=== PATIENT | male | born 1975 | race Caucasian/White ===

== ENCOUNTER 2019-08-04 16:53 | Emergency (ER) | payer OTHER, MEDICAID, SELFPAY ==
[2019-08-04 16:53] VITALS: BP 170/112; PULSE 110; RESP 18; TEMP 37.2; O2SAT 96
--- NOTE | 2019-08-04 17:00 | ED_ITS ---
HPI - Psych <SONIYA Juarez - Last Filed: 08/04/19 21:19> General Chief Complaint: Psychiatric Symptoms Stated Complaint: Mental Health Time Seen by Provider: 08/04/19 16:54 History of Present Illness HPI Narrative: 43yo male presents emergency department via police for homicidal ideation. Please report that they were called to his house yesterday for vague homicidal thoughts. They were called again today to patient's house as he was continued to make, saddle throat. Patient was brought into the emergency department intermittently aggressive toward staff with healing and pacing. Patient would not denies homicidal ideation to triage nurse. Patient was originally non cooperative with staff but then cooperated for blood draw, examination, and encouraged to stay the room. Denies any fever, cough, pain, or injury. When asked if he wanted to harm people he reported ?I will if I have to protect myself. Patient was asked was he feels like he needs to protect himself from, patient reports, I just do sometimes and him not repeating again. Please incident reports note reported that patient's brother, Elvin Montalvo called 911 and reported that the patient left a voicemail and/or text threatening to kill his mother. Please went to check and patient's mother who reported patient had been talking about killing people all day long. Patient's mother spoke with Roldan Braden from [facility] and were instucted to bring the patient into the hospital for evaluation. Patient's mother reported yesterday patient made threats about killing her, other people, and that eventually himself. Patient's mother endorsed patient was diagnosed with depression. Please reported that patient was concerned that someone was following him due to witness rubbing in [place]. Related Data Home Medications Medication Instructions Recorded Confirmed No Known Home Medications 08/04/19 08/04/19 Allergies Allergy/AdvReac Type Severity Reaction Status Date / Time No Known Drug Allergies Allergy Verified 08/04/19 17:21 Review of Systems <SONIYA Juarez - Last Filed: 08/04/19 21:19> Review of Systems Narrative: REVIEW OF SYSTEMS: GENERAL: Denies fever or chills. HENT: No head trauma. RESPIRATORY: No cough. MUSCULOSKELETAL: No injury. INTEGUMENTARY: No injury. NEURO: No LOC. PSYCH: Patient was brought in by police for HI and SI. When asked if he wanted to harm people he reported ?I will if I have to protect myself. Patient History <SONIYA Juarez - Last Filed: 08/04/19 21:19> Medical History Alcohol intoxication (Acute) Deliberate self-cutting (Acute) Depression (Acute) Social History Smoking Status: Current every day smoker Exam <SONIYA Juarez - Last Filed: 08/04/19 21:19> Initial Vital Signs Initial Vital Signs: Vital Signs Temperature 98.9 F 08/04/19 16:53 Pulse Rate 110 H 08/04/19 16:53 Respiratory Rate 18 08/04/19 16:53 Blood Pressure 170/112 H 08/04/19 16:53 Pulse Oximetry 96 08/04/19 16:53 PHYSICAL EXAMINATION: GENERAL: Disheveled, poor hygiene. Poor historian, occasionally aggressive, can be redirected. HENT: Normocephalic, atraumatic. EYES: Conjunctiva pink, sclera white, no periorbital swelling. CHEST: Normal to inspection and without deformities. CARDIOVASCULAR: S1 and S2 sounds normal. Regular rate and rhythm, no murmurs, clicks, or bruits. RESPIRATORY: Normal respiratory rate, trachea midline, airway patent. No stridor, nasal flaring or accessory muscle use. Lungs are clear in all august without wheeze, rhonchi, or crackles. MUSCULOSKELETAL: Normal gait and coordination. Equal tone and mass bilaterally. No injuries. EXTREMITIES: Moves all extremities. SKIN: Warm, dry, soft, appropriate color for ethnicity. NEURO: Alert and Oriented X 3. Good coordination. No ataxia. PSYCH: Agitated. Admits homicidal ideations, denies suicidal ideation at this time. Allowed, pressured, and rambling speech. Redirectable by Police, threatening to leave but does cooperate for blood draws and examination. <Michael Bob DO - Last Filed: 08/05/19 01:56> Initial Vital Signs Initial Vital Signs: Vital Signs Temperature 98.9 F 08/04/19 16:53 Pulse Rate 110 H 08/04/19 16:53 Respiratory Rate 18 08/04/19 16:53 Blood Pressure 170/112 H 08/04/19 16:53 Pulse Oximetry 96 08/04/19 16:53 Scores <Melani SONIYA Crow - Last Filed: 08/04/19 21:19> GCS [place] coma scale eye opening: Spontaneous [place] coma scale verbal response: Orientated Carly coma scale motor response: Obey commands Carly coma scale total score: 15 Course <Melani HerreraSONIYA cortez - Last Filed: 08/04/19 21:19> Course Course Narrative: Patient was initially significantly agitated with staff despite efforts to redirect. Chemical restraints were ordered however, patient started to cooperate. No medication was administered, no restrained for used, discontinue observation by police and staff during ED stay. 1840: Patient was evaluated by SAP TREASURY CONSULTANT. 2029: Patient resting comfortably in bed, calm and cooperative, occasionally chatting with staff. Patient seen laughing with staff, drinking coffee, redirectable not agitated at this time. 2103: Spoke with SAP TREASURY CONSULTANT contacted DCR, DCR dispatched and on the way. 2115: Patient escalating, patient yelling at staff and stating that he wants to leave to smoke a cigarette. Refuses nicotine patch. Report given to Dr. Bob, Dr. Bob evaluated patient at bedside. Orders Ordered: ED Orders 08/04/19 17:03 Complete Blood Count AUTO DIFF Stat Comprehensive Metabolic Panel Stat Ethanol (ETOH) Stat Thyroid Stimulating Hormone Stat 08/04/19 17:07 Urinalysis and Microscopic Stat Urine Drug Screen, Rapid Stat Discontinued Medications Diphenhydramine HCl (Benadryl) 25 mg PO NOW ONE Stop: 08/04/19 16:58 Last Admin: 08/04/19 17:10 Dose: Not Given Documented by: ADRIANA Diphenhydramine HCl (Benadryl) 25 mg IV NOW ONE Stop: 08/04/19 17:08 Last Admin: 08/04/19 20:31 Dose: Not Given Documented by: ADÁN Haloperidol (Haldol) 5 mg IM NOW ONE Stop: 08/04/19 16:58 Last Admin: 08/04/19 20:31 Dose: Not Given Documented by: ADÁN Lorazepam (Ativan) 2 mg IM NOW ONE Stop: 08/04/19 16:58 Last Admin: 08/04/19 20:31 Dose: Not Given Documented by: ADÁN Lorazepam (Ativan) 2 mg PO NOW ONE Stop: 08/04/19 21:15 Last Admin: 08/04/19 21:19 Dose: 2 mg Documented by: ADÁN Vital Signs Vital signs: Vital Signs - 8 hr 08/04/19 16:53 Temperature 98.9 F Pulse Rate 110 H Respiratory Rate 18 Blood Pressure [Left Arm] 170/112 H Pulse Oximetry 96 <Michael Bob DO - Last Filed: 08/05/19 01:56> Orders Ordered: ED Orders 08/04/19 17:03 Complete Blood Count AUTO DIFF Stat Comprehensive Metabolic Panel Stat Ethanol (ETOH) Stat Thyroid Stimulating Hormone Stat 08/04/19 17:07 Urinalysis and Microscopic Stat Urine Drug Screen, Rapid Stat Discontinued Medications Diphenhydramine HCl (Benadryl) 25 mg PO NOW ONE Stop: 08/04/19 16:58 Last Admin: 08/04/19 17:10 Dose: Not Given Documented by: ADRIANA Diphenhydramine HCl (Benadryl) 25 mg IV NOW ONE Stop: 08/04/19 17:08 Last Admin: 08/04/19 20:31 Dose: Not Given Documented by: ADÁN Haloperidol (Haldol) 5 mg IM NOW ONE Stop: 08/04/19 16:58 Last Admin: 08/04/19 20:31 Dose: Not Given Documented by: ADÁN Lorazepam (Ativan) 2 mg IM NOW ONE Stop: 08/04/19 16:58 Last Admin: 08/04/19 20:31 Dose: Not Given Documented by: ADÁN Lorazepam (Ativan) 2 mg PO NOW ONE Stop: 08/04/19 21:15 Last Admin: 08/04/19 21:19 Dose: 2 mg Documented by: AÁDN Vital Signs Vital signs: Vital Signs - 8 hr 08/04/19 16:53 Temperature 98.9 F Pulse Rate 110 H Respiratory Rate 18 Blood Pressure [Left Arm] 170/112 H Pulse Oximetry 96 MDM - Psych <SONIYA Juarez - Last Filed: 08/04/19 21:19> Medical Records Attestation: I reviewed the patient's medical records. Lab Data Attestation: I reviewed the patient's lab results. Result diagrams: 08/04/19 17:03 08/04/19 17:03 Labs: Lab Results 08/04/19 08/04/19 08/04/19 Range/Units 17:03 17:03 17:03 WBC 6.9 (4.5-11.0) X10^3/uL RBC 4.74 (4.5-5.9) X10^6/uL Hgb 15.4 (13.5-17.5) g/dL Hct 44.3 (41-53) % MCV 93.5 (80-100) fL MCH 32.4 (26-34) PG MCHC 34.7 (30-36) % RDW 13.8 (11.6-14.8) % Plt Count 361 (150-400) X10^3/uL Neut % (Auto) 48.1 L (50-75) % Lymph % (Auto) 40.4 H (25-40) % [place] % (Auto) 9.3 (3-14) % Eos % (Auto) 1.4 L (2-4) % Baso % (Auto) 0.8 (0-2) % Neut # (Auto) 3300 (3048-0484) /uL Lymph # (Auto) 2800 (7895-7350) /uL [place] # (Auto) 600 (0-900) /uL Eos # (Auto) 100 (0-450) /uL Baso # (Auto) 100 (0-100) /uL Sodium 141 (137-145) mmol/L Potassium 3.8 (3.4-5.1) mmol/L Chloride 105 (98-107) mmol/L Carbon Dioxide 21 L (22-32) mmol/L BUN 10 (9-20) mg/dL Creatinine 0.83 (0.66-1.25) mg/dL Estimated GFR > 60.0 (>60) mL/min BUN/Creatinine Ratio 12.0 (6-22) Glucose 173 H (70-100) mg/dL Calcium 9.0 (8.4-10.2) mg/dL Total Bilirubin 0.2 (0.2-1.3) mg/dL AST 25 (17-59) IU/L ALT 19 (<50) IU/L Alkaline Phosphatase 94 (38-126) U/L Total Protein 8.2 (6.3-8.2) g/dL Albumin 4.8 (3.5-5.0) g/dL Globulin 3.4 (1.7-4.1) g/dL Albumin/Globulin Ratio 1.4 (1.0-2.8) TSH 0.54 (0.47-4.68) uIU/mL Urine Color Urine Appearance Urine pH (4.5-8.0) Ur Specific [place] (1.000-1.035) Urine Protein (Negative) Urine Glucose (UA) (Negative) g/dL Urine Ketones (NEGATIVE) Urine Occult Blood (Negative) Urine Nitrate (Negative) Urine Bilirubin (NEGATIVE) Urine Urobilinogen (0.2) E.U./dL Ur Leukocyte Esterase (NEGATIVE) Urine RBC (0-5/HPF) Urine WBC (0-5/HPF) Urine Bacteria (None) Ur Culture Indicated? Micro UA Comment U Opiates 300ng/mL cut (Negative) Ur Oxycodone Screen (Negative) Urine Methadone Screen (Negative) Ur Barbiturates Screen (Negative) U Tricyclic Antidepress (Negative) Ur Phencyclidine Scrn (Negative) Ur Amphetamines Screen (Negative) U Methamphetamines Scrn (Negative) Ur MDMA Scrn (Ecstasy) (Negative) U Benzodiazepines Scrn (Negative) Urine Cocaine Screen (Negative) U Marijuana (THC) Screen (Negative) Ethyl Alcohol 229 H ( - 10) mg/dL 08/04/19 08/04/19 Range/Units 17:07 17:07 WBC (4.5-11.0) X10^3/uL RBC (4.5-5.9) X10^6/uL Hgb (13.5-17.5) g/dL Hct (41-53) % MCV (80-100) fL MCH (26-34) PG MCHC (30-36) % RDW (11.6-14.8) % Plt Count (150-400) X10^3/uL Neut % (Auto) (50-75) % Lymph % (Auto) (25-40) % [place] % (Auto) (3-14) % Eos % (Auto) (2-4) % Baso % (Auto) (0-2) % Neut # (Auto) (7807-4420) /uL Lymph # (Auto) (8193-1417) /uL [place] # (Auto) (0-900) /uL Eos # (Auto) (0-450) /uL Baso # (Auto) (0-100) /uL Sodium (137-145) mmol/L Potassium (3.4-5.1) mmol/L Chloride (98-107) mmol/L Carbon Dioxide (22-32) mmol/L BUN (9-20) mg/dL Creatinine (0.66-1.25) mg/dL Estimated GFR (>60) mL/min BUN/Creatinine Ratio (6-22) Glucose (70-100) mg/dL Calcium (8.4-10.2) mg/dL Total Bilirubin (0.2-1.3) mg/dL AST (17-59) IU/L ALT (<50) IU/L Alkaline Phosphatase (38-126) U/L Total Protein (6.3-8.2) g/dL Albumin (3.5-5.0) g/dL Globulin (1.7-4.1) g/dL Albumin/Globulin Ratio (1.0-2.8) TSH (0.47-4.68) uIU/mL Urine Color Yellow Urine Appearance Clear Urine pH 5.0 (4.5-8.0) Ur Specific [place] 1.025 (1.000-1.035) Urine Protein Negative (Negative) Urine Glucose (UA) Negative (Negative) g/dL Urine Ketones Negative (NEGATIVE) Urine Occult Blood Negative (Negative) Urine Nitrate Negative (Negative) Urine Bilirubin Negative (NEGATIVE) Urine Urobilinogen 0.2 (0.2) E.U./dL Ur Leukocyte Esterase Negative (NEGATIVE) Urine RBC None seen (0-5/HPF) Urine WBC None seen (0-5/HPF) Urine Bacteria None seen (None) Ur Culture Indicated? Cult not indicated Micro UA Comment Microscopic normal U Opiates 300ng/mL cut Negative (Negative) Ur Oxycodone Screen Negative (Negative) Urine Methadone Screen Negative (Negative) Ur Barbiturates Screen Negative (Negative) U Tricyclic Antidepress Negative (Negative) Ur Phencyclidine Scrn Negative (Negative) Ur Amphetamines Screen Negative (Negative) U Methamphetamines Scrn Negative (Negative) Ur MDMA Scrn (Ecstasy) Negative (Negative) U Benzodiazepines Scrn Negative (Negative) Urine Cocaine Screen Negative (Negative) U Marijuana (THC) Screen Negative (Negative) Ethyl Alcohol ( - 10) mg/dL MDM Narrative Medical decision making narrative: 43-year-old male with a history of depression and homicidal ideation was brought to the emergency department by police for homicidal ideation. Patient admits homicidal ideation, currently denies SI. Patient was initially aggressive with staff, then was redirected and calm for few hours. In the emergency department, around 9:00 p.m. patient became aggravated and aggressive with staff. DCFR called due to patient's homicidal ideation, patient is a threat to others. Patient was signed out to Dr. Maradiaga at 2112. <Michael Bob, DO - Last Filed: 08/05/19 01:56> Lab Data Labs: Lab Results 08/04/19 08/04/19 08/04/19 Range/Units 17:03 17:03 17:03 WBC 6.9 (4.5-11.0) X10^3/uL RBC 4.74 (4.5-5.9) X10^6/uL Hgb 15.4 (13.5-17.5) g/dL Hct 44.3 (41-53) % MCV 93.5 (80-100) fL MCH 32.4 (26-34) PG MCHC 34.7 (30-36) % RDW 13.8 (11.6-14.8) % Plt Count 361 (150-400) X10^3/uL Neut % (Auto) 48.1 L (50-75) % Lymph % (Auto) 40.4 H (25-40) % [place] % (Auto) 9.3 (3-14) % Eos % (Auto) 1.4 L (2-4) % Baso % (Auto) 0.8 (0-2) % Neut # (Auto) 3300 (3492-0531) /uL Lymph # (Auto) 2800 (1149-2962) /uL [place] # (Auto) 600 (0-900) /uL Eos # (Auto) 100 (0-450) /uL Baso # (Auto) 100 (0-100) /uL Sodium 141 (137-145) mmol/L Potassium 3.8 (3.4-5.1) mmol/L Chloride 105 (98-107) mmol/L Carbon Dioxide 21 L (22-32) mmol/L BUN 10 (9-20) mg/dL Creatinine 0.83 (0.66-1.25) mg/dL Estimated GFR > 60.0 (>60) mL/min BUN/Creatinine Ratio 12.0 (6-22) Glucose 173 H (70-100) mg/dL Calcium 9.0 (8.4-10.2) mg/dL Total Bilirubin 0.2 (0.2-1.3) mg/dL AST 25 (17-59) IU/L ALT 19 (<50) IU/L Alkaline Phosphatase 94 (38-126) U/L Total Protein 8.2 (6.3-8.2) g/dL Albumin 4.8 (3.5-5.0) g/dL Globulin 3.4 (1.7-4.1) g/dL Albumin/Globulin Ratio 1.4 (1.0-2.8) TSH 0.54 (0.47-4.68) uIU/mL Urine Color Urine Appearance Urine pH (4.5-8.0) Ur Specific [place] (1.000-1.035) Urine Protein (Negative) Urine Glucose (UA) (Negative) g/dL Urine Ketones (NEGATIVE) Urine Occult Blood (Negative) Urine Nitrate (Negative) Urine Bilirubin (NEGATIVE) Urine Urobilinogen (0.2) E.U./dL Ur Leukocyte Esterase (NEGATIVE) Urine RBC (0-5/HPF) Urine WBC (0-5/HPF) Urine Bacteria (None) Ur Culture Indicated? Micro UA Comment U Opiates 300ng/mL cut (Negative) Ur Oxycodone Screen (Negative) Urine Methadone Screen (Negative) Ur Barbiturates Screen (Negative) U Tricyclic Antidepress (Negative) Ur Phencyclidine Scrn (Negative) Ur Amphetamines Screen (Negative) U Methamphetamines Scrn (Negative) Ur MDMA Scrn (Ecstasy) (Negative) U Benzodiazepines Scrn (Negative) Urine Cocaine Screen (Negative) U Marijuana (THC) Screen (Negative) Ethyl Alcohol 229 H ( - 10) mg/dL 08/04/19 08/04/19 Range/Units 17:07 17:07 WBC (4.5-11.0) X10^3/uL RBC (4.5-5.9) X10^6/uL Hgb (13.5-17.5) g/dL Hct (41-53) % MCV (80-100) fL MCH (26-34) PG MCHC (30-36) % RDW (11.6-14.8) % Plt Count (150-400) X10^3/uL Neut % (Auto) (50-75) % Lymph % (Auto) (25-40) % [place] % (Auto) (3-14) % Eos % (Auto) (2-4) % Baso % (Auto) (0-2) % Neut # (Auto) (5224-6765) /uL Lymph # (Auto) (4063-8087) /uL [place] # (Auto) (0-900) /uL Eos # (Auto) (0-450) /uL Baso # (Auto) (0-100) /uL Sodium (137-145) mmol/L Potassium (3.4-5.1) mmol/L Chloride (98-107) mmol/L Carbon Dioxide (22-32) mmol/L BUN (9-20) mg/dL Creatinine (0.66-1.25) mg/dL Estimated GFR (>60) mL/min BUN/Creatinine Ratio (6-22) Glucose (70-100) mg/dL Calcium (8.4-10.2) mg/dL Total Bilirubin (0.2-1.3) mg/dL AST (17-59) IU/L ALT (<50) IU/L Alkaline Phosphatase (38-126) U/L Total Protein (6.3-8.2) g/dL Albumin (3.5-5.0) g/dL Globulin (1.7-4.1) g/dL Albumin/Globulin Ratio (1.0-2.8) TSH (0.47-4.68) uIU/mL Urine Color Yellow Urine Appearance Clear Urine pH 5.0 (4.5-8.0) Ur Specific [place] 1.025 (1.000-1.035) Urine Protein Negative (Negative) Urine Glucose (UA) Negative (Negative) g/dL Urine Ketones Negative (NEGATIVE) Urine Occult Blood Negative (Negative) Urine Nitrate Negative (Negative) Urine Bilirubin Negative (NEGATIVE) Urine Urobilinogen 0.2 (0.2) E.U./dL Ur Leukocyte Esterase Negative (NEGATIVE) Urine RBC None seen (0-5/HPF) Urine WBC None seen (0-5/HPF) Urine Bacteria None seen (None) Ur Culture Indicated? Cult not indicated Micro UA Comment Microscopic normal U Opiates 300ng/mL cut Negative (Negative) Ur Oxycodone Screen Negative (Negative) Urine Methadone Screen Negative (Negative) Ur Barbiturates Screen Negative (Negative) U Tricyclic Antidepress Negative (Negative) Ur Phencyclidine Scrn Negative (Negative) Ur Amphetamines Screen Negative (Negative) U Methamphetamines Scrn Negative (Negative) Ur MDMA Scrn (Ecstasy) Negative (Negative) U Benzodiazepines Scrn Negative (Negative) Urine Cocaine Screen Negative (Negative) U Marijuana (THC) Screen Negative (Negative) Ethyl Alcohol ( - 10) mg/dL Discharge Plan Departure Prescriptions: No Action No Known Home Medications RF: 0 <Michael Bob DO - Last Filed: 08/05/19 01:56> Cosign ED Attending Cosignature Attestation: I was immediately available in the department for consultation. This documentation has been reviewed and I agree with assessment and plan. Supervised by Michael Bob DO
--- NOTE | 2019-08-04 17:06 | PC.NURSE ---
During triage patient was evalsive with answers. Me: Are you suicidal? Pt; What every they say (looking at Police) Me: Do you want to harm anyone else? Pt: if they get in the way Pt then challenged my authority to be in the room and demonstrated increased posturing and muscle tone w/ verbalized agitation. I asked if he would be willing to give a blood /urine sample he stated your going to have to make me and balled his fists. At that time I requested that the [place] officers stay and escort pt to safe room. Pt changed to safe garments. He continued to verbalize his discontent.
[2019-08-04 17:13] LABS: Add Manual Diff / Slide Review NO; Basophils Absolute Auto 100 /uL (0-100); Basophils Percent Auto 0.8 % (0-2); Eosinophils Absolute Auto 100 /uL (0-450); Eosinophils Percent Auto 1.4 % (2-4); Hematocrit 44.3 % (41-53); Hemoglobin 15.4 g/dL (13.5-17.5); Lymphocytes Absolute Auto 2800 /uL (1100-4500); Lymphocytes Percent Auto 40.4 % (25-40); Mean Corpuscular HGB Conc 34.7 % (30-36); Mean Corpuscular Hemoglobin 32.4 PG (26-34); Mean Corpuscular Volume 93.5 fL (80-100); Monocytes Absolute Auto 600 /uL (0-900); Monocytes Percent Auto 9.3 % (3-14); Neutrophils Absolute Auto 3300 /uL (1500-7000); Neutrophils Percent Auto 48.1 % (50-75); Platelet Count 361 X10^3/uL (150-400); Red Blood Cell Count 4.74 X10^6/uL (4.5-5.9); Red Cell Distribution Width 13.8 % (11.6-14.8); White Blood Cell Count 6.9 X10^3/uL (4.5-11.0)
[2019-08-04 17:16] LABS: Appearance Urine UA CLEAR; Bilirubin Urine UA NEGATIVE (NEGATIVE); Color Urine UA YELLOW; Glucose Urine UA NEGATIVE (Negative); Ketones Urine UA NEGATIVE (NEGATIVE); Leukocyte Esterase Urine UA NEGATIVE (NEGATIVE); Nitrite Urine UA NEGATIVE (Negative); Occult Blood Urine UA NEGATIVE (Negative); Protein Urine UA NEGATIVE (Negative); Specific Gravity Urine UA 1.025 (1.000-1.035); Urobilinogen Urine UA 0.2 E.U./dL (0.2)
--- NOTE | 2019-08-04 17:16 | PC.NURSE ---
Pt standing in the doorway of R[address] [facility]. Pt repeatedly asking security installer questions then saying see you're not supposed to talk but here you are talking. Pt seems to want to get a rise out of staff. Pt was cooperative with blood draw and getting a urine sample. BENSON Crow was at bedside evaluating pt
[2019-08-04 17:17] LABS: Bacteria Urine None Seen; RBC Urine None Seen (0-5/HPF); WBC Urine None Seen (0-5/HPF)
[2019-08-04 17:20] LABS: UR Morphine/Opiate cutoff 300 Negative (Negative); Ur Creatinine Normal (Normal); Ur Specific Gravity Normal (Normal); Urine Amphetamines Negative (Negative); Urine Barbiturates Negative (Negative); Urine Cocaine Negative (Negative); Urine MDMA Negative (Negative); Urine Methamphetamines Negative (Negative); Urine Phencyclidine Negative (Negative); Urine Tetrahydrocannabinol Negative (Negative); Urine pH Normal (Normal)
[2019-08-04 17:21] LABS: Urine Benzodiazepines Negative (Negative); Urine Methadone Negative (Negative); Urine Oxycodone Negative (Negative); Urine Tricyclic Antidepressant Negative (Negative)
[2019-08-04 17:23] LABS: Culture Indicated Urine Cult Not Indicated; Urine Comments Microscopic Normal
[2019-08-04 17:26] LABS: Alanine Aminotransferase 19 IU/L (<50); Albumin 4.8 g/dL (3.5-5.0); Albumin Globulin Ratio 1.4 (1.0-2.8); Alkaline Phosphatase 94 U/L (38-126); Aspartate Aminotransferase 25 IU/L (17-59); Bilirubin Total 0.2 mg/dL (0.2-1.3); Blood Urea Nitrogen 10 mg/dL (9-20); Carbon Dioxide 21 mmol/L (22-32); Chloride 105 mmol/L (98-107); Estimated Glomerular Filt Rate > 60.0 mL/min (>60); Ethanol (ETOH) 229 mg/dL; Globulin 3.4 g/dL (1.7-4.1); Glucose 173 mg/dL (70-100); HEMOLYSIS < 15 (0-50); Potassium 3.8 mmol/L (3.4-5.1); Sodium 141 mmol/L (137-145); Total Protein 8.2 g/dL (6.3-8.2)
--- NOTE | 2019-08-04 17:47 | PC.NURSE ---
pt is sitting in doorway of rm 13. PD standing by
--- NOTE | 2019-08-04 17:55 | PC.NURSE ---
Patient states that his mental health binder caser was Roldan Braden from [facility] in [facility] but he fired him because he sucks yesterday. He was given a new comp field case manager. His name is Jeff Murry.
[2019-08-04 18:03] LABS: Thyroid Stimulating Hormone 0.54 uIU/mL (0.47-4.68)
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
--- NOTE | 2019-08-04 18:17 | PC.NURSE ---
Fidel Ruff on watch @18:15. Have been introduced to the Pt. He is sitting in the doorway and is talkative
--- NOTE | 2019-08-04 18:31 | PC.NURSE ---
Pt. currently speaking with STILL PUMP OPERATOR about his situation.
--- NOTE | 2019-08-04 19:00 | CM.SWNOTE ---
SWIMMING POOL INSTALLER note SWIMMING POOL INSTALLER met with patient with personnel security specialist present. Patient is a 43 y/o male who presents to ED via [employer]. Patient is brought to ED due to threats of harm against mother. SWIMMING POOL INSTALLER introduces self to patient and introduces role. Patient states you can't hold me and informs SWIMMING POOL INSTALLER that he is sick of talking to people. SWIMMING POOL INSTALLER asks for brief overview of what brought him to ED. Patient reports that he said to his mother I'll kill you and states that she said it to [him] first. Patient says he is isn't going to hurt himself or anyone else, but states that others might hurt him. SWIMMING POOL INSTALLER asks for clarification and patient states it doesn't matter. SWIMMING POOL INSTALLER asks if patient had been thinking about killing himself. Patient reports that he has been thinking about it constantly for the past 8 years. SWIMMING POOL INSTALLER asks how and patient responded that he would like to drink himself to , but that takes a long time. SWIMMING POOL INSTALLER asks how much patient typically drinks each day, patient responds not much, I drink when I have money, and I'm broke. SWIMMING POOL INSTALLER asks patient if he has a counselor. Patient provides SWIMMING POOL INSTALLER with name of counselor, but informs SWIMMING POOL INSTALLER that he has not met with this counselor yet, as he fired his counselor earlier in the day. Patient states that he fired his counselor because his counselor spoke to his mother with a release of information on file, and said that he no longer trusts his counselor. Patient continues to describe his mother as the worst person. Patient begins to escalate and informs SWIMMING POOL INSTALLER that he is done talking and that he wants to leave. SWIMMING POOL INSTALLER informs patient that he will follow up with counselor and hospital provider overseeing his care. SWIMMING POOL INSTALLER then staffs with provider, who informs SWIMMING POOL INSTALLER that patient refused to deny homicidal ideation. SWIMMING POOL INSTALLER and provider in agreement that [facility]CR involvement is necessary. Plan: SWIMMING POOL INSTALLER to call [facility] to initiate DCR intervention. COREY Walker
--- NOTE | 2019-08-04 19:15 | PC.NURSE ---
Pt. very talkative sitting in doorway having coffee.
--- NOTE | 2019-08-04 20:15 | PC.NURSE ---
Pt offered warm blanket and is now laying down.
--- NOTE | 2019-08-04 20:34 | CM.SWNOTE ---
LINEMAN A CLASS note LINEMAN A CLASS attempts to contact patient's counselor. No after-hours line provided. LINEMAN A CLASS then calls [facility] to discuss DCR consult. LINEMAN A CLASS speaks with Isatu at [facility]. Isatu informs LINEMAN A CLASS that DCR had been dispatched to meet with patient earlier in day. LINEMAN A CLASS explained to DCR that patient was brought in by police during the afternoon. After discussing patient case with Isatu, Isatu completes intake and requests that attestation form be faxed. Due to patient's BAL upon arrival, Isatu informs LINEMAN A CLASS that DCR might not meet with patient until later in evening/following morning. LINEMAN A CLASS leaves Isatu LINEMAN A CLASS's direct line and ED main phone line in case DCR is called once LINEMAN A CLASS is off shift. LINEMAN A CLASS has Provider SONIYA Juarez sign attestation form and faxes form to [facility]. Plan: LINEMAN A CLASS will wait for phone call from DCR to assess next steps COREY Walker
--- NOTE | 2019-08-04 20:56 | PC.NURSE ---
Pt. awake agitated wants to know how much money is in his pants NOW. Magdaleno complied and counted money in belongings in front of Pt. and Mirella Ruff as witness. Pt. very vocal and agitated.
--- NOTE | 2019-08-04 21:15 | PC.NURSE ---
Pt speaking with Dr. Bob. Meds have been offered and Pt accepted offer
[2019-08-04] MEDS: LORazepam 0.5 MG TABLET 2 MG PO (21:19)
--- NOTE | 2019-08-04 21:25 | PC.NURSE ---
Patient became progressively more aggressive and wanted answers. [place] [employer] was notified and came back to stand by. Patient cooperated with medication and is laying down to sleep.
--- NOTE | 2019-08-04 22:44 | PC.NURSE ---
Pt is laying down on mattress. He appears to be sleeping. He has warm blankets.
--- NOTE | 2019-08-04 23:32 | PC.NURSE ---
Patient is asleep
--- NOTE | 2019-08-05 00:17 | PC.NURSE ---
Cesar the DCR is in doing his exam.
--- NOTE | 2019-08-05 04:18 | PC.NURSE ---
Since he was given ativan po for agitation and to help him sleep,he was not awakened after falling asleep.
[2019-08-05 06:45] VITALS: BP 157/95; PULSE 82; RESP 20; O2SAT 97
--- NOTE | 2019-08-05 06:47 | PC.NURSE ---
He refused snack or beverage.
[2019-08-05 07:16] LABS: Ethanol (ETOH) < 10 mg/dL
--- NOTE | 2019-08-05 09:22 | PC.NURSE ---
Addendum entered by Leroy Arboleda CNA 08/05/19 12:50: 1250 - Pt is pacing in room. Offered food and drink, and bathroom. Pt refused food and drink, but is currently using bathroom. This ZONING ENGINEER remains 1:1 with pt. Addendum entered by eLroy Arboleda CNA 08/05/19 09:50: 0950 -Pt awake and sitting up on bed. Asked to use the bathroom and was let in with the villatoro. Pt also asked what was happening next. I notified him that the high school social studies tutor would be talking to him soon. Pt still refusing food and liquids. Nurse Alexus was able to get him to drink some water. Pt now laying on the bed, calm, and with door open and lights on. I remain 1:1 with pt. Original Note: Pt has been sleeping with door ajar since I arrived at 0700. Pt occasionally coughs, but has not been awake. Per the request of the RN we are letting him sleep. Meal tray is set aside until he awakes. I am 1:1 with pt.
[2019-08-05 09:45] VITALS: BP 150/105; PULSE 65; RESP 18; TEMP 37; O2SAT 98
--- NOTE | 2019-08-05 11:17 | PC.NURSE ---
ENVIRONMENTAL SERVICES TECHNICIAN: The patient is laying quietly in bed.
--- NOTE | 2019-08-05 12:54 | CM.SWNOTE ---
FOUNDER AND CHIEF EXECUTIVE OFFICER note FOUNDER AND CHIEF EXECUTIVE OFFICER called [facility] to check in on status of patient. FOUNDER AND CHIEF EXECUTIVE OFFICER spoke with Mercedez at [facility]. Mercedez informed FOUNDER AND CHIEF EXECUTIVE OFFICER that, following the meeting with DCR from previous night, [facility] needed to do another assessment when patient's BAL was lower. Mercedez stated that they had been awaiting a return call from the hospital about this. FOUNDER AND CHIEF EXECUTIVE OFFICER informed [facility] that patient's BAL was checked this morning and was less than .01 BAL. Mercedez states she will dispatch DCR on duty to complete assessment. Plan: FOUNDER AND CHIEF EXECUTIVE OFFICER will wait for call from DCR on staff and coordinate care with DCR and medical staff. COREY Walker
[2019-08-05 14:00] VITALS: BP 155/94; PULSE 68; RESP 16; O2SAT 97
--- NOTE | 2019-08-05 14:09 | CM.SWNOTE ---
HIGHWAY TRAFFIC CONTROL TECHNICIAN note DCR called HIGHWAY TRAFFIC CONTROL TECHNICIAN. DCR will come to meet with patient at and says he will arrive around 1545. HIGHWAY TRAFFIC CONTROL TECHNICIAN will follow up with DCR at this time. COREY Walker
--- NOTE | 2019-08-05 14:56 | PC.NURSE ---
Patient refuses to eat or drink, breakfast and lunch have not been eaten. He drank a small amount of water this morning, about 100cc of water. I asked him to drink some more water at this time and he states can I just leave? this is bullshit!
--- NOTE | 2019-08-05 14:58 | PC.NURSE ---
Patient reports he wants to leave, appears anxious and fidgety and is becoming more aggressive in his speech and body language. I offered him some anxiety meds. He reports he wants to leave and smoke a cigarette. I offered a nicotine patch. He refuses everything at this time.
--- NOTE | 2019-08-05 15:04 | PC.NURSE ---
Fidel Ruff on Pt. watch @15:00.
--- NOTE | 2019-08-05 15:47 | PC.NURSE ---
Cesar Brannon DCR meeting with Pt. currently
--- NOTE | 2019-08-05 15:47 | PC.NURSE ---
DCR at bedside talking with patient, patient is calmer and sitting in bed cooperatively at this time.
--- NOTE | 2019-08-05 16:43 | PC.NURSE ---
Patient pacing in room, jiggjose manuel handles on doors in 13 stating he wants to leave and smoke a cigarette and this is bullshit. I offered him anxiety meds and a nicotine patch which he refused. I also told him if he tries to leave then I will have to call the police. He states I'm not scared of them. he is standing in doorway, not attempting to leave yet.
--- NOTE | 2019-08-05 16:46 | PC.NURSE ---
DCR completed with eval, calling for placement. Patient is resting quietly in room on bed. Calm at this time.
--- NOTE | 2019-08-05 17:01 | CM.SWNOTE ---
CHAINSTITCH TUNNEL ELASTIC OPERATOR note CHAINSTITCH TUNNEL ELASTIC OPERATOR staffs with DCR. DCR in agreement to continue to pursue placement then discharge to home if unsuccessful. DCR offers to set up [facility] check-ins with patient if discharge home is plan. CHAINSTITCH TUNNEL ELASTIC OPERATOR staffs with Dr. Mejia. Dr. Mejia expresses that patient is currently not able to be discharged home due to [facility], no support/care network, suicide ideation, and weapons in home. CHAINSTITCH TUNNEL ELASTIC OPERATOR will continue to pursue placement at [facility] facility for patient. COREY Walker
--- NOTE | 2019-08-05 17:04 | CM.SWNOTE ---
MISSILE INSPECTOR PREFLIGHT note MISSILE INSPECTOR PREFLIGHT checks in with DCR regarding patient. DCR informs MISSILE INSPECTOR PREFLIGHT he is planning to detain patient and is pursuing [facility] bed. MISSILE INSPECTOR PREFLIGHT will coordinate with Dr. Mejia and NASIM throughout patient's stay at . COREY Walker
--- NOTE | 2019-08-05 17:20 | PC.NURSE ---
Pre-screening performed with Sherin DESAI [facility].
--- NOTE | 2019-08-05 17:31 | PC.NURSE ---
Pt states he will eat dinner, ordered @17:15.
[2019-08-05] MEDS: LORazepam 0.5 MG TABLET 2 MG PO (18:19)
--- NOTE | 2019-08-05 18:30 | PC.NURSE ---
pt. waiting for transfer to inpatient unit.
--- NOTE | 2019-08-05 18:34 | ED.PSYCH ---
HPI - Psych General Chief Complaint: Psychiatric Symptoms Stated Complaint: Mental Health Time Seen by Provider: 08/04/19 16:54 Source: police Mode of arrival: other History of Present Illness HPI Narrative: The patient was initially he was initially seen by [facility] and then left to [place]. Report was given to me by Dr. Bob at 7:00 a.m. this morning. The patient has been cooperative all day. The patient was evaluated by DCR. The patient is being transferred to [facility]. The patient will be transferred by ambulance. Related Data Home Medications Medication Instructions Recorded Confirmed No Known Home Medications 08/04/19 08/04/19 Allergies Allergy/AdvReac Type Severity Reaction Status Date / Time No Known Drug Allergies Allergy Verified 08/04/19 17:21 Patient History Medical History Alcohol intoxication (Acute) Deliberate self-cutting (Acute) Depression (Acute) Social History Smoking Status: Current every day smoker Smoking Status: Current every day smoker alcohol intake frequency: 3 or more drinks per day Substance Use Type: unknown Exam Initial Vital Signs Initial Vital Signs: Vital Signs Temperature 98.9 F 08/04/19 16:53 Pulse Rate 110 H 08/04/19 16:53 Respiratory Rate 18 08/04/19 16:53 Blood Pressure 170/112 H 08/04/19 16:53 Pulse Oximetry 96 08/04/19 16:53 Course Orders Ordered: Discontinued Medications Diphenhydramine HCl (Benadryl) 25 mg PO NOW ONE Stop: 08/04/19 16:58 Last Admin: 08/04/19 17:10 Dose: Not Given Documented by: ADRIANA Diphenhydramine HCl (Benadryl) 25 mg IV NOW ONE Stop: 08/04/19 17:08 Last Admin: 08/04/19 20:31 Dose: Not Given Documented by: ADÁN Haloperidol (Haldol) 5 mg IM NOW ONE Stop: 08/04/19 16:58 Last Admin: 08/04/19 20:31 Dose: Not Given Documented by: ADÁN Lorazepam (Ativan) 2 mg IM NOW ONE Stop: 08/04/19 16:58 Last Admin: 08/04/19 20:31 Dose: Not Given Documented by: ADÁN Lorazepam (Ativan) 2 mg PO NOW ONE Stop: 08/04/19 21:15 Last Admin: 08/04/19 21:19 Dose: 2 mg Documented by: ADÁN Lorazepam (Ativan) 2 mg PO NOW ONE Stop: 08/05/19 17:54 Last Admin: 08/05/19 18:19 Dose: 2 mg Documented by: TIMI Vital Signs Vital signs: Vital Signs - 8 hr 08/05/19 14:00 Pulse Rate 68 Respiratory Rate 16 Blood Pressure [Left Arm] 155/94 H Pulse Oximetry 97 MDM - Psych Lab Data Result diagrams: 08/04/19 17:03 08/04/19 17:03 Labs: Lab Results 08/04/19 08/04/19 08/04/19 Range/Units 17:03 17:03 17:03 WBC 6.9 (4.5-11.0) X10^3/uL RBC 4.74 (4.5-5.9) X10^6/uL Hgb 15.4 (13.5-17.5) g/dL Hct 44.3 (41-53) % MCV 93.5 (80-100) fL MCH 32.4 (26-34) PG MCHC 34.7 (30-36) % RDW 13.8 (11.6-14.8) % Plt Count 361 (150-400) X10^3/uL Neut % (Auto) 48.1 L (50-75) % Lymph % (Auto) 40.4 H (25-40) % [place] % (Auto) 9.3 (3-14) % Eos % (Auto) 1.4 L (2-4) % Baso % (Auto) 0.8 (0-2) % Neut # (Auto) 3300 (8542-5089) /uL Lymph # (Auto) 2800 (5317-4147) /uL [place] # (Auto) 600 (0-900) /uL Eos # (Auto) 100 (0-450) /uL Baso # (Auto) 100 (0-100) /uL Sodium 141 (137-145) mmol/L Potassium 3.8 (3.4-5.1) mmol/L Chloride 105 (98-107) mmol/L Carbon Dioxide 21 L (22-32) mmol/L BUN 10 (9-20) mg/dL Creatinine 0.83 (0.66-1.25) mg/dL Estimated GFR > 60.0 (>60) mL/min BUN/Creatinine Ratio 12.0 (6-22) Glucose 173 H (70-100) mg/dL Calcium 9.0 (8.4-10.2) mg/dL Total Bilirubin 0.2 (0.2-1.3) mg/dL AST 25 (17-59) IU/L ALT 19 (<50) IU/L Alkaline Phosphatase 94 (38-126) U/L Total Protein 8.2 (6.3-8.2) g/dL Albumin 4.8 (3.5-5.0) g/dL Globulin 3.4 (1.7-4.1) g/dL Albumin/Globulin Ratio 1.4 (1.0-2.8) TSH 0.54 (0.47-4.68) uIU/mL Urine Color Urine Appearance Urine pH (4.5-8.0) Ur Specific Jefferson (1.000-1.035) Urine Protein (Negative) Urine Glucose (UA) (Negative) g/dL Urine Ketones (NEGATIVE) Urine Occult Blood (Negative) Urine Nitrate (Negative) Urine Bilirubin (NEGATIVE) Urine Urobilinogen (0.2) E.U./dL Ur Leukocyte Esterase (NEGATIVE) Urine RBC (0-5/HPF) Urine WBC (0-5/HPF) Urine Bacteria (None) Ur Culture Indicated? Micro UA Comment U Opiates 300ng/mL cut (Negative) Ur Oxycodone Screen (Negative) Urine Methadone Screen (Negative) Ur Barbiturates Screen (Negative) U Tricyclic Antidepress (Negative) Ur Phencyclidine Scrn (Negative) Ur Amphetamines Screen (Negative) U Methamphetamines Scrn (Negative) Ur MDMA Scrn (Ecstasy) (Negative) U Benzodiazepines Scrn (Negative) Urine Cocaine Screen (Negative) U Marijuana (THC) Screen (Negative) Ethyl Alcohol 229 H ( - 10) mg/dL 08/04/19 08/04/19 08/05/19 Range/Units 17:07 17:07 06:50 WBC (4.5-11.0) X10^3/uL RBC (4.5-5.9) X10^6/uL Hgb (13.5-17.5) g/dL Hct (41-53) % MCV (80-100) fL MCH (26-34) PG MCHC (30-36) % RDW (11.6-14.8) % Plt Count (150-400) X10^3/uL Neut % (Auto) (50-75) % Lymph % (Auto) (25-40) % [place] % (Auto) (3-14) % Eos % (Auto) (2-4) % Baso % (Auto) (0-2) % Neut # (Auto) (6293-2158) /uL Lymph # (Auto) (9298-7997) /uL [place] # (Auto) (0-900) /uL Eos # (Auto) (0-450) /uL Baso # (Auto) (0-100) /uL Sodium (137-145) mmol/L Potassium (3.4-5.1) mmol/L Chloride (98-107) mmol/L Carbon Dioxide (22-32) mmol/L BUN (9-20) mg/dL Creatinine (0.66-1.25) mg/dL Estimated GFR (>60) mL/min BUN/Creatinine Ratio (6-22) Glucose (70-100) mg/dL Calcium (8.4-10.2) mg/dL Total Bilirubin (0.2-1.3) mg/dL AST (17-59) IU/L ALT (<50) IU/L Alkaline Phosphatase (38-126) U/L Total Protein (6.3-8.2) g/dL Albumin (3.5-5.0) g/dL Globulin (1.7-4.1) g/dL Albumin/Globulin Ratio (1.0-2.8) TSH (0.47-4.68) uIU/mL Urine Color Yellow Urine Appearance Clear Urine pH 5.0 (4.5-8.0) Ur Specific [place] 1.025 (1.000-1.035) Urine Protein Negative (Negative) Urine Glucose (UA) Negative (Negative) g/dL Urine Ketones Negative (NEGATIVE) Urine Occult Blood Negative (Negative) Urine Nitrate Negative (Negative) Urine Bilirubin Negative (NEGATIVE) Urine Urobilinogen 0.2 (0.2) E.U./dL Ur Leukocyte Esterase Negative (NEGATIVE) Urine RBC None seen (0-5/HPF) Urine WBC None seen (0-5/HPF) Urine Bacteria None seen (None) Ur Culture Indicated? Cult not indicated Micro UA Comment Microscopic normal U Opiates 300ng/mL cut Negative (Negative) Ur Oxycodone Screen Negative (Negative) Urine Methadone Screen Negative (Negative) Ur Barbiturates Screen Negative (Negative) U Tricyclic Antidepress Negative (Negative) Ur Phencyclidine Scrn Negative (Negative) Ur Amphetamines Screen Negative (Negative) U Methamphetamines Scrn Negative (Negative) Ur MDMA Scrn (Ecstasy) Negative (Negative) U Benzodiazepines Scrn Negative (Negative) Urine Cocaine Screen Negative (Negative) U Marijuana (THC) Screen Negative (Negative) Ethyl Alcohol < 10 ( - 10) mg/dL Discharge Plan Departure Patient Disposition: Xfer Psychiatric Hosp Clinical Impression: Delusional disorder, multiple episodes currently in acute episode, Acute psychosis Depression Qualifiers: Depression Type: major depressive disorder Major depression recurrence: unspecified whether recurrent Active/Remission status: currently active Major depression episode severity: severe Psychotic features: with psychotic features Qualified Code(s): F32.3 - Major depressive disorder, single episode, severe with psychotic features Activity Restrictions/Additional Instructions: Go directly to [facility].
[2019-08-05 18:58] VITALS: BP 180/91; PULSE 54; RESP 16; TEMP 37.1; O2SAT 98
--- NOTE | 2019-08-05 19:01 | PC.NURSE ---
Pt. has departed with ambulance to in treatment facility.
== END 2019-08-05 19:00 ==
PROVIDERS: Emergency Medicine; Nurse Practitioner; Emergency Provider Emergency Medicine
DX: F23 Brief psychotic disorder (principal); F32.3 Major depressive disorder, single episode, severe with psychotic features
CPT/HCPCS: 36415; 80053; 80305; 80320; 81001; 84443; 85025; 99284